=== PATIENT | female | born 1955 | race Caucasian/White ===

== ENCOUNTER 2019-04-07 23:58 | Emergency (ER) | payer SELFPAY ==
[2019-04-08] MEDS ORDERED: NS 0.9% 1000 ML** 1,000 ML IV ONE (02:11)
[2019-04-08] MEDS ORDERED: HYDROmorphone INJ1* 1 MG/ML SYRINGE IV SLOW PU ONE ×2 (02:12→05:37)
[2019-04-08] MEDS ORDERED: Ondansetron INJ* 2 MG/ML VIAL IV ONE (02:13)
[2019-04-08 02:30] LABS: ABS Lymphocytes 1.3 10^3/ul (1.0-4.8); ABS Monocytes 0.6 10^3/ul (0-0.8); ABS Neutrophils 7.4 10^3/ul (1.5-7.7); Eosinophil % 0.1 %; Hematocrit 40 % (35-47); Hemoglobin 13.2 g/dL (12.0-16.0); Lymphocyte % 14.3 %; Mean Corpuscular HGB Conc 34 g/dL (31-36); Mean Corpuscular Hemoglobin 31 pg (27-31); Mean Corpuscular Volume 92 fL (80-97); Mean Platelet Volume 7.5 fL (7.4-10.4); Platelet Count 231 10^3/uL (150-450); Red Blood Count 4.31 10^6 /uL (3.70-4.87); Red Cell Distribution Width 14 % (10-15); White Blood Count 9.4 10^3/uL (3.5-10.8)
[2019-04-08 02:38] LABS: Activated Partial Thrombo Time 28.8 seconds (26.0-38.0); INR 0.94 (0.82-1.09)
[2019-04-08 02:52] LABS: Albumin 4.5 g/dL (3.2-5.2); BUN/Creatinine Ratio 19.7 (8-20); Calcium 9.3 mg/dL (8.6-10.3); EGFR African American 109.4 (>60); EGFR Non-African American 90.5 (>60); Globulin 2.3 g/dL (2-4); Potassium 3.9 mmol/L (3.5-5.0); Total Bilirubin 0.4 mg/dL (0.2-1.0); Total Protein 6.8 g/dL (6.4-8.9)
[2019-04-08] MEDS ORDERED: Iohexol 300* (CONTRAST) 10 ML SDV IV ONE (03:05)
--- NOTE | 2019-04-08 06:01 | ED ---
Abdominal Pain/Female - HPI Summary HPI Summary: This patient is a 63 year old F presenting to [facility] with a chief complaint of right-sided rib pain since 6 hours ago. Pt states there is pain up and down below the right breast. Pt says she slipped on loose stones outside of her house and landed on her right side. The patient rates the pain 9/10 in severity. Symptoms aggravated by palpation. Symptoms alleviated by nothing. Pt denies LOC. Pt has hx of osteoporosis. - History of Current Complaint Chief Complaint: EDChestWallPain Stated Complaint: THINKS SHE BROKE RIBS PER PT Time Seen by Provider: 04/08/19 02:01 Hx Obtained From: Patient ?: No Onset/Duration: Sudden Onset, Lasting Hours - 6, Still Present Timing: Hours - 6 Severity Initially: Severe Severity Currently: Severe Pain Intensity: 9 Pain Scale Used: 0-10 Numeric Location: Other - right side of ribs Radiates: No Aggravating Factor(s): Other: - palpation to area Alleviating Factor(s): Nothing Associated Signs and Symptoms: Positive: Other: - positive - right-sided rib pain. negative - LOC Allergies/Adverse Reactions: Allergies Allergy/AdvReac Type Severity Reaction Status Date / Time No Known Allergies Allergy Verified 04/08/19 00:09 PMH/Surg Hx/FS Hx/Imm Hx Previously Healthy: No Endocrine/Hematology History: Reports: Hx Anemia - BLEEDING AFTER NASAL FRACTURE 2 MONTHS AGO Respiratory History: Reports: Hx Asthma - BRONCHIAL ASTHMA WITH BAD COLD NONE IN 5 YEARS Musculoskeletal History: Reports: Hx Arthritis - FEET, HANDS Sensory History: Reports: Hx Contacts or Glasses - READING GLASSES Opthamlomology History: Reports: Hx Contacts or Glasses - READING GLASSES - Cancer History Hx Chemotherapy: No Hx Radiation Therapy: No - Surgical History Surgical History: Yes Surgery Procedure, Year, and Place: 2011 [place]AL FRACTURE RE[place]. [place] [facility] [place] [facility] [place]ING[place] LEFT HAND MIDD[place] [facility] [place] [facility] [place] 2011 RT FOOT [facility] Hx Anesthesia Reactions: Yes - SEVERE N/V; REQUESTS PREOP MEDS Infectious Disease History: No Infectious Disease History: Denies: Traveled Outside the [place] in Last 30 Days - Family History Known Family History: Positive: None - Social History Alcohol Use: Occasionally Alcohol Amount: 2 DRINKS/WEEKS Hx Substance Use: No Substance Use Type: Reports: None Hx Tobacco Use: Yes Smoking Status (MU): Light Every Day Tobacco Smoker Amount Used/How Often: 1/2PP/MONTH Length of Time of Smoking/Using Tobacco: 30 YRS Have You Smoked in the Last Year: No Review of Systems Negative: Fever Musculoskeletal: Other - right sided rib pain Negative: Syncope All Other Systems Reviewed And Are Negative: Yes Physical Exam - Summary Physical Exam Summary: VITAL SIGNS: Reviewed. GENERAL: Patient is a well-developed and nourished FEMALE who is lying comfortable in the stretcher. Patient is not in any acute respiratory distress. HEAD AND FACE: No signs of trauma. No ecchymosis, hematomas or skull depressions. No sinus tenderness. EYES: PERRLA, EOMI x 2, No injected conjunctiva, no nystagmus. EARS: Hearing grossly intact. Ear canals and tympanic membranes are within normal limits. MOUTH: Oropharynx within normal limits. NECK: Supple, trachea is midline, no adenopathy, no JVD, no carotid bruit, no c- spine tenderness, neck with full ROM CHEST: Symmetric, no tenderness at palpation LUNGS: Clear to auscultation bilaterally. No wheezing or crackles. CVS: Regular rate and rhythm, S1 and S2 present, no murmurs or gallops appreciated. ABDOMEN: Soft, tenderness over right lower rib cage. No signs of distention. No rebound no guarding, and no masses palpated. Bowel sounds are normal. EXTREMITIES: FROM in all major joints, no edema, no cyanosis or clubbing. NEURO: Alert and oriented x 3. No acute neurological deficits. Speech is normal and follows commands. SKIN: Dry and warm Triage Information Reviewed: Yes Vital Signs On Initial Exam: Initial Vitals Temp Pulse Resp BP Pulse Ox 98.7 F 69 20 121/83 98 04/08/19 00:05 04/08/19 00:05 04/08/19 00:05 04/08/19 00:05 04/08/19 00:05 Vital Signs Reviewed: Yes Diagnostics - Vital Signs Vital Signs Temp Pulse Resp BP Pulse Ox 04/08/19 05:49 18 04/08/19 02:35 18 04/08/19 00:05 98.7 F 69 20 121/83 98 - Laboratory Lab Results: Lab Results 04/08/19 04/08/19 04/08/19 Range/Units 02:23 02:23 02:23 WBC 9.4 (3.5-10.8) 10^3/uL RBC 4.31 (3.70-4.87) 10^6 /uL Hgb 13.2 (12.0-16.0) g/dL Hct 40 (35-47) % MCV 92 (80-97) fL MCH 31 (27-31) pg MCHC 34 (31-36) g/dL RDW 14 (10-15) % Plt Count 231 (150-450) 10^3/uL MPV 7.5 (7.4-10.4) fL Neut % (Auto) 78.8 % Lymph % (Auto) 14.3 % [place] % (Auto) 6.4 % Eos % (Auto) 0.1 % Baso % (Auto) 0.4 % Absolute Neuts (auto) 7.4 (1.5-7.7) 10^3/ul Absolute Lymphs (auto) 1.3 (1.0-4.8) 10^3/ul Absolute Monos (auto) 0.6 (0-0.8) 10^3/ul Absolute Eos (auto) 0.0 (0-0.6) 10^3/ul Absolute Basos (auto) 0.0 (0-0.2) 10^3/ul Absolute Nucleated RBC 0.0 10^3/ul Nucleated RBC % 0.0 INR (Anticoag Therapy) 0.94 (0.82-1.09) APTT 28.8 (26.0-38.0) seconds Sodium 135 (135-145) mmol/L Potassium 3.9 (3.5-5.0) mmol/L Chloride 104 (101-111) mmol/L Carbon Dioxide 22 (22-32) mmol/L Anion Gap 9 (2-11) mmol/L BUN 13 (6-24) mg/dL Creatinine 0.66 (0.51-0.95) mg/dL Est GFR ( Amer) 109.4 (>60) Est GFR (Non-Af Amer) 90.5 (>60) BUN/Creatinine Ratio 19.7 (8-20) Glucose 111 H (70-100) mg/dL Calcium 9.3 (8.6-10.3) mg/dL Total Bilirubin 0.40 (0.2-1.0) mg/dL AST 29 (13-39) U/L ALT 24 (7-52) U/L Alkaline Phosphatase 74 (34-104) U/L Total Protein 6.8 (6.4-8.9) g/dL Albumin 4.5 (3.2-5.2) g/dL Globulin 2.3 (2-4) g/dL Albumin/Globulin Ratio 2.0 (1-3) Result Diagrams: 04/08/19 02:23 04/08/19 02:23 Lab Statement: Any lab studies that have been ordered have been reviewed, and results considered in the medical decision making process. - CT Chest/Abdomen/Pelvis CT Interpretation Completed By: Radiologist Summary of CT Findings: IMPRESSION: Chest: Fracture of the right third to fifth lateral ribs. Abd/Pel: 1) No acute findings. 2) Distention of the pancreatic duct. No pancreatic mass is observed. Consider further assessment with a MRCP. These findings were reviewed by Dr. Peraza. Abdominal Pain Fem Course/Dx - Course Course Of Treatment: This patient is a 63 year old F presenting to [facility] with a chief complaint of right-sided rib pain since 6 hours ago. Pt states there is pain up and down below the right breast. Pt says she slipped on loose stones outside of her house and landed on her right side. The patient rates the pain 9/ 10 in severity. Symptoms aggravated by palpation. Symptoms alleviated by nothing. Pt denies LOC. Pt has hx of osteoporosis. Physical exam shows tenderness over right lower rib cage. Lab results show glucose 111. Chest/Abd/ Pel CT IMPRESSION: Chest: Fracture of the right third to fifth lateral ribs. Abd/Pel: 1) No acute findings. 2) Distention of the pancreatic duct. No pancreatic mass is observed. Consider further assessment with a MRCP. During ED course, the pt was given Dilaudid, fluids, and Zofran. Dx is right rib fractures. Pt is agreeable to discharge. Pt was told to follow up with her primary care provider within 1-2 days and to return to the ED for any new or worsening symptoms. - Diagnoses Provider Diagnoses: Right rib fracture Discharge - Sign-Out/Discharge Documenting (check all that apply): Patient Departure - discharge Patient Received Moderate/Deep Sedation with Procedure: No - Discharge Plan Condition: Stable Disposition: HOME Prescriptions: Oxycodone/ASA 5/325 (NF) [Percodan (NF)] 1 tab PO Q6H PRN #20 tab MDD 4 PRN Reason: Pain Patient Education Materials: Rib Fracture (ED) Referrals: Willis Lewis MD [Primary Care Provider] - 1 Day Additional Instructions: Follow up with your primary care provider within 1-2 days. Return to the ED for any new or worsening symptoms. - Attestation Statements Document Initiated by Scribe: Yes Documenting Scribe: Jose Barboza Provider For Whom Scribe is Documenting (Include Credential): Dr. Maikel Peraza MD Scribe Attestation: Jose Reid, scribed for Dr. Maikel Peraza MD on 04/08/19 at 0619. Status of Scribe Document: Ready
[2019-04-08 06:55] VITALS: BP 100/60
== END 2019-04-08 06:54 | disposition home or self-care (01) ==
LOC: ED 23:58
DX: S22.41XA Multiple fractures of ribs, right side, initial encounter for closed fracture (principal); W01.0XXA Fall on same level from slipping, tripping and stumbling without subsequent striking against object, initial encounter; Y92.008 Other place in unspecified non-institutional (private) residence as the place of occurrence of the external cause; F17.210 Nicotine dependence, cigarettes, uncomplicated
CPT/HCPCS: 36415; 71260; 74177; 80053; 85025; 85610; 85730; 96361; 96374; 96375; 96376; 99283; J1170; J2405